=== PATIENT | male | born 1980 | race African-American/Black ===

== ENCOUNTER 2016-03-18 15:19 | Emergency (ER) | payer SELFPAY ==
[~2016-03-18] VITALS: Ht 182.9 cm; Wt 104.3 kg
[2016-03-18 18:04] VITALS: BP 155/96
[2016-03-18] MEDS ORDERED: CEPH-264 PO (18:28)
[2016-03-18] MEDS ORDERED: TRIA15OI9 TP (18:28)
--- NOTE | 2016-03-18 18:28 | PHYS DOC ---
Past Medical History Past Medical History: No Pertinent History Past Surgical History: No Surgical History Additional Information: Occasional smoker Alcohol Use: Occasionally Drug Use: None Adult General Chief Complaint Chief Complaint: INSECT BITE HPI HPI Patient is a 36 year old male who presents with redness and swelling to the right forearm starting yesterday when he awoke. There are 3 areas of redness and swelling. Patient denies any pain but states that the spots are itchy. He also has 1 spot on the left side of the low back. He denies any fever or difficulty breathing. He denies any change in household products or new medications. He lives alone. He does not have a PCP. Review of Systems Review of Systems Constitutional: Denies fever or chills. [] Respiratory: Denies cough or shortness of breath. [] Musculoskeletal: Denies back pain or joint pain. [] Integument: Reports redness, swelling, and itching to the right forearm. Neurologic: Denies headache, focal weakness or sensory changes. [] Allergies Allergies Allergies Coded Allergies Type Severity Reaction Last Updated Verified No Known Drug Allergies 04/16/15 No Physical Exam Physical Exam Constitutional: Well developed, well nourished, no acute distress, non-toxic appearance. [] HENT: Normocephalic, atraumatic, oropharynx moist. [] Eyes: PERRLA, EOMI, conjunctiva normal, no discharge. [] Skin: Warm, dry. There are 3 areas of erythema with mild edema of the right forearm on the dorsal and ventral sides. There is central punctate lesion within each. There is no induration or drainage. There is another smaller, approximately 1 cm, lesion in the left lumbar region of the back. Back: No midline tenderness, no CVA tenderness. [] Extremities: No tenderness, ROM intact, no edema. Distal pulses equal bilaterally. [] Neurologic: Alert and oriented X 3, normal motor function, normal sensory function, no focal deficits noted. [] Psychologic: Affect normal, judgement normal, mood normal. [] Current Patient Data Vital Signs Vital Signs Date Time Temp Pulse Resp B/P Pulse Ox O2 Delivery O2 Flow Rate FiO2 03/18/16 18:04 98.2 87 16 98 Room Air 98.2 EKG EKG [] Radiology/Procedures Radiology/Procedures [] Course & Med Decision Making Course & Med Decision Making Pertinent Labs and Imaging studies reviewed. (See chart for details) [] Dragon Disclaimer Dragon Disclaimer This electronic medical record was generated, in whole or in part, using a voice recognition dictation system. Departure Departure Impression: Primary Impression: Insect bite Disposition: 01 HOME, SELF-CARE Condition: STABLE Referrals: NO PCP (PCP) Patient Instructions: Insect Bite, [id number] Additional Instructions: You appear to have insect bites that may be infected. Please apply the prescribed ointment to help with itching. Please complete all the prescribed antibiotics, even if you are improving. Please follow-up with a primary care provider in the next 2-3 days for reassessment of your bites, sooner if worsening. Return to emergency department with any new or concerning symptoms. Scripts Triamcinolone Acetonide (Triamcinolone Acetonide 0.5% Oint)15 Gm Oint...g.1 Howie TP BID #60 GM Prov:AUDREY BEAL 03/18/16 Cephalexin (Keflex)500 Mg Capsule1 Cap PO BID #14 CAP Prov:AUDREY BEAL 03/18/16 Problem Qualifiers Primary Impression: Insect bite Encounter type: initial encounter Qualified Code: W57.XXXA - Bitten or stung by nonvenomous insect and other nonvenomous arthropods, initial encounter AUDREY BEAL Mar 18, 2016 18:28
== END 2016-03-18 18:35 | disposition home or self-care (01) ==
LOC: ER 15:19
DX: S50.861A Insect bite (nonvenomous) of right forearm, initial encounter (principal); F17.200 Nicotine dependence, unspecified, uncomplicated; W57.XXXA Bitten or stung by nonvenomous insect and other nonvenomous arthropods, initial encounter; Y93.89 Activity, other specified; Y92.89 Other specified places as the place of occurrence of the external cause; Y99.8 Other external cause status
CPT/HCPCS: 99283

== ENCOUNTER 2016-08-08 10:37 | Emergency (ER) | payer SELFPAY ==
[~2016-08-08] VITALS: Ht 182.9 cm; Wt 108.9 kg
[~2016-08-08 10:37] MED LIST: CEPH-264 PO; TRIA15OI9 TP
--- NOTE | 2016-08-08 10:58 | PHYS DOC ---
Past Medical History Past Medical History: No Pertinent History Past Surgical History: No Surgical History Alcohol Use: Occasionally Drug Use: None Adult General Chief Complaint Chief Complaint: ABDOMINAL PAIN HPI HPI Patient is a 36 year old male with no significant medical history who presents today complaining of mild left mid and lower abdominal pain that has been going on for 1 month and only occurs when he lifts weights. Patient denies any nausea vomiting diarrhea urgency frequency or dysuria. Denies any hematuria. Denies any fever. He states he smokes occasionally and does use marijuana occasionally. Denies any chance he is constipated. Review of Systems Review of Systems Constitutional: Denies fever or chills [] Eyes: Denies change in visual acuity, redness, or eye pain [] HENT: Denies nasal congestion or sore throat [] Respiratory: Denies cough or shortness of breath [] Cardiovascular: No additional information not addressed in HPI [] GI: Left mid and lower abdominal pain : Denies dysuria or hematuria [] Musculoskeletal: Denies back pain or joint pain [] Integument: Denies rash or skin lesions [] Neurologic: Denies headache, focal weakness or sensory changes [] Endocrine: Denies polyuria or polydipsia [] Allergies Allergies Allergies Coded Allergies Type Severity Reaction Last Updated Verified No Known Drug Allergies 04/16/15 No Physical Exam Physical Exam Constitutional: Well developed, well nourished, no acute distress, non-toxic appearance. [] HENT: Normocephalic, atraumatic, bilateral external ears normal, oropharynx moist, no oral exudates, nose normal. [] Eyes: PERRLA, EOMI, conjunctiva normal, no discharge. [] Neck: Normal range of motion, no tenderness, supple, no stridor. [] Cardiovascular:Heart rate regular rhythm, no murmur [] Lungs & Thorax: Bilateral breath sounds clear to auscultation [] Abdomen: Bowel sounds normal, soft, no tenderness, no masses, no pulsatile masses. [] Skin: Warm, dry, no erythema, no rash. [] Back: No tenderness, no CVA tenderness. [] Extremities: No tenderness, no cyanosis, no clubbing, ROM intact, no edema. [] Neurologic: Alert and oriented X 3, normal motor function, normal sensory function, no focal deficits noted. [] Psychologic: Affect normal, judgement normal, mood normal. [] Current Patient Data Vital Signs Vital Signs Date Time Temp Pulse Resp B/P (MAP) Pulse Ox O2 Delivery O2 Flow Rate FiO2 08/08/16 11:18 69 18 135/85 (102) 97 Room Air 08/08/16 10:44 98.1 98.1 Lab Values Laboratory Tests Test 08/08/16 10:50 08/08/16 11:00 Urine Collection Type Unknown Urine Color Yellow Urine Clarity Clear Urine pH 5.5 Urine Specific [place] 1.010 Urine Protein Negative mg/dL (NEG-TRACE) Urine Glucose (UA) Negative mg/dL (NEG) Urine Ketones (Stick) Negative mg/dL (NEG) Urine Blood Negative (NEG) Urine Nitrite Negative (NEG) Urine Bilirubin Negative (NEG) Urine Urobilinogen Dipstick 0.2 mg/dL (0.2 mg/dL) Urine Leukocyte Esterase Trace (NEG) Urine RBC 0 /HPF (0-2) Urine WBC Occ /HPF (0-4) Urine Squamous Epithelial Cells Occ /LPF Urine Bacteria 0 /HPF (0-FEW) Urine Opiates Screen Neg (NEG) Urine Methadone Screen Neg (NEG) Urine Barbiturates Neg (NEG) Urine Phencyclidine Screen Neg (NEG) Urine Amphetamine/Methamphetamine Neg (NEG) Urine Benzodiazepines Screen Neg (NEG) Urine Cocaine Screen Neg (NEG) Urine Cannabinoids Screen Pos (NEG) Urine Ethyl Alcohol Neg (NEG) White Blood Count 9.0 x10^3/uL (4.0-11.0) Red Blood Count 4.83 x10^6/uL (4.30-5.70) Hemoglobin 15.1 g/dL (13.0-17.5) Hematocrit 43.5 % (39.0-53.0) Mean Corpuscular Volume 90 fL (79-100) Mean Corpuscular Hemoglobin 31 pg (25-35) Mean Corpuscular Hemoglobin Concent 35 g/dL (31-37) Red Cell Distribution Width 14.0 % (11.5-14.5) Platelet Count 272 x10^3/uL (140-400) Neutrophils (%) (Auto) 52 % (31-73) Lymphocytes (%) (Auto) 33 % (24-48) Monocytes (%) (Auto) 12 % (0-9) H Eosinophils (%) (Auto) 2 % (0-3) Basophils (%) (Auto) 1 % (0-3) Neutrophils # (Auto) 4.7 x10^3uL (1.8-7.7) Lymphocytes # (Auto) 3.0 x10^3/uL (1.0-4.8) Monocytes # (Auto) 1.1 x10^3/uL (0.0-1.1) Eosinophils # (Auto) 0.2 x10^3/uL (0.0-0.7) Basophils # (Auto) 0.1 x10^3/uL (0.0-0.2) Sodium Level 139 mmol/L (136-145) Potassium Level 4.3 mmol/L (3.5-5.1) Chloride Level 103 mmol/L (98-107) Carbon Dioxide Level 29 mmol/L (21-32) Anion Gap 7 (6-14) Blood Urea Nitrogen 11 mg/dL (8-26) Creatinine 1.2 mg/dL (0.7-1.3) Estimated GFR (Cockcroft-Gault) 83.4 BUN/Creatinine Ratio 9 (6-20) Glucose Level 100 mg/dL (70-99) H Calcium Level 9.7 mg/dL (8.5-10.1) Total Bilirubin 0.5 mg/dL (0.2-1.0) Aspartate Amino Transferase (AST) 22 U/L (15-37) Alanine Aminotransferase (ALT) 42 U/L (16-63) Alkaline Phosphatase 57 U/L (46-116) Total Protein 7.7 g/dL (6.4-8.2) Albumin 4.2 g/dL (3.4-5.0) Albumin/Globulin Ratio 1.2 (1.0-1.7) Ethyl Alcohol Level < 10 mg/dL (0-10) Laboratory Tests 08/08/16 11:00 Laboratory Tests 08/08/16 11:00 EKG EKG [] Radiology/Procedures Radiology/Procedures []PROCEDURE: CT ABDOMEN PELVIS WO CONTRAST Indication left-sided abdominal pain for several weeks. Axial images through the abdomen and pelvis were obtained. The study is limited. No IV or gastrointestinal contrast was administered. No prior imaging is available. The lung bases are clear. The liver and spleen appear unremarkable. The gallbladder appears grossly normal. No pancreatic adrenal or renal anomalies are seen. There are scattered diverticula seen associated with the large bowel. In the mid to distal descending colon, over approximately a 9 to 10 cm segment, there is stranding surrounding the colon. In the same area there are scattered diverticula. The findings are most compatible with a segment of diverticulitis. A discrete abscess is not seen. While an underlying mass is not apparent if colonoscopy has not been recently performed this should be considered. No additional finding in the pelvis is seen. IMPRESSION: Findings involving the descending colon compatible with a long segment of diverticulitis. If colonoscopy has not been recently performed this should be considered. PQRS Compliance Statement: One or more of the following individualized dose reduction techniques were utilized for this examination: 1. Automated exposure control 2. Adjustment of the mA and/or kV according to patient size 3. Use of iterative reconstruction technique DICTATED and SIGNED BY: HAWA EMANUEL MD DATE: 08/08/16 1132 CC: LIMA ANDREW APRN; NO PCP ~ Course & Med Decision Making Course & Med Decision Making Pertinent Labs and Imaging studies reviewed. (See chart for details) Evaluation shows a 36-year-old male patient complaining of left mid and lower abdominal pain that only occurs when he lifts weights. CBC CMP lipase with no acute findings. Urine analysis is negative for infection. CT of the abdomen and pelvic is noted for diverticulitis and recommends colonoscopy. Patient was provided a cloud physicist and instructed to follow-up for colonoscopy. He was discharged with Flagyl and Cipro. He was provided return precautions and discharged in stable condition. Dragon Disclaimer Dragon Disclaimer This electronic medical record was generated, in whole or in part, using a voice recognition dictation system. Departure Departure Impression: Primary Impression: Diverticulitis Disposition: 01 HOME, SELF-CARE Condition: STABLE Referrals: NO PCP (PCP) SAVANA BELTRÁN MD Follow-up in the next 1-7 days Patient Instructions: Diverticulitis Additional Instructions: You were seen for left lower quadrant abdominal pain. Your CT of the abdomen and pelvic was noted for diverticulitis. This is inflammation of the colon. We recommended following up with the provided cloud physicist for colonoscopy. We put you on antibiotics to help reduce some of the inflammation. Scripts Tramadol Hcl (ULTRAM) 50 Mg Tablet 1 TAB PO Q6HRS, #30 TAB Prov: LIMA ANDREW APRN 08/08/16 Metronidazole (FLAGYL) 500 Mg Tablet 500 MG PO TID, #30 TAB Prov: LIMA ANDREW APRN 08/08/16 Ciprofloxacin Hcl (CIPRO) 500 Mg Tablet 1 TAB PO BID, #20 TAB Prov: LIMA ANDREW APRN 08/08/16 Problem Qualifiers Primary Impression: Diverticulitis Diverticulitis site: large intestine Diverticulitis bleeding: without bleeding Diverticulitis complication: without perforation or abscess Qualified Codes: K57.32 - Diverticulitis of large intestine without perforation or abscess without bleeding LIMA ANDREW APRN Aug 08, 2016 10:58
[2016-08-08 11:18] VITALS: BP 135/85
[2016-08-08 11:20] LABS: BASO # 0.1 x10^3/uL (0.0-0.2); BASO % 1 % (0-3); EOS % 2 % (0-3); HEMATOCRIT 43.5 % (39.0-53.0); HEMOGLOBIN 15.1 g/dL (13.0-17.5); LYMPH % 33 % (24-48); MEAN CORPUSCULAR HEMOGLOBIN 31 pg (25-35); MEAN CORPUSCULAR HGB CONC 35 g/dL (31-37); MEAN CORPUSCULAR VOLUME 90 fL (79-100); MONO % 12 % (0-9); NEUT % 52 % (31-73); PLATELET COUNT 272 x10^3/uL (140-400); RED BLOOD COUNT 4.83 x10^6/uL (4.30-5.70)
[2016-08-08 11:25] LABS: BILIRUBIN,URINE NEGATIVE (NEG); GLUCOSE,URINE NEGATIVE (NEG); NITRITE,URINE NEGATIVE (NEG); PH,URINE 5.5; PROTEIN,URINE NEGATIVE (NEG-TRACE); UROBILINOGEN,URINE 0.2 mg/dL (0.2 mg/dL)
[2016-08-08 11:30] LABS: BARBITURATES NEG (NEG); BENZODIAZEPINES NEG (NEG); CANNABINOIDS POS (NEG); COCAINE NEG (NEG); METHADONE NEG (NEG); OPIATES NEG (NEG); PHENCYCLIDINE NEG (NEG)
[2016-08-08 11:32] LABS: CALCIUM 9.7 mg/dL (8.5-10.1); CREATININE 1.2 mg/dL (0.7-1.3); GFR 83.4; POTASSIUM 4.3 mmol/L (3.5-5.1)
[2016-08-08 11:38] LABS: ALBUMIN 4.2 g/dL (3.4-5.0); ALBUMIN/GLOBULIN RATIO 1.2 (1.0-1.7); TOTAL BILIRUBIN 0.5 mg/dL (0.2-1.0); TOTAL PROTEIN 7.7 g/dL (6.4-8.2)
--- NOTE | 2016-08-08 11:41 | RAD ---
Indication left-sided abdominal pain for several weeks. Axial images through the abdomen and pelvis were obtained. The study is limited. No IV or gastrointestinal contrast was administered. No prior imaging is available. The lung bases are clear. The liver and spleen appear unremarkable. The gallbladder appears grossly normal. No pancreatic adrenal or renal anomalies are seen. There are scattered diverticula seen associated with the large bowel. In the mid to distal descending colon, over approximately a 9 to 10 cm segment, there is stranding surrounding the colon. In the same area there are scattered diverticula. The findings are most compatible with a segment of diverticulitis. A discrete abscess is not seen. While an underlying mass is not apparent if colonoscopy has not been recently performed this should be considered. No additional finding in the pelvis is seen. IMPRESSION: Findings involving the descending colon compatible with a long segment of diverticulitis. If colonoscopy has not been recently performed this should be considered. PQRS Compliance Statement: One or more of the following individualized dose reduction techniques were utilized for this examination: 1. Automated exposure control 2. Adjustment of the mA and/or kV according to patient size 3. Use of iterative reconstruction technique
[2016-08-08 11:53] LABS: BACTERIA,URINE 0 /HPF (0-FEW); RBC,URINE 0 /HPF (0-2); SQUAMOUS EPITHELIAL CELL,UR OCC /LPF; WBC,URINE OCC /HPF (0-4)
[2016-08-08] MEDS ORDERED: METR500T PO (12:35)
[2016-08-08] MEDS ORDERED: TRAM-48 PO (12:35)
[2016-08-08] MEDS ORDERED: CIPR500T94 PO (12:35)
== END 2016-08-08 12:47 | disposition home or self-care (01) ==
LOC: ER 10:37
DX: K57.92 Diverticulitis of intestine, part unspecified, without perforation or abscess without bleeding (principal); F17.200 Nicotine dependence, unspecified, uncomplicated; F12.10 Cannabis abuse, uncomplicated
CPT/HCPCS: 36415; 74176; 80053; 80305; 80320; 81001; 85027; G0480; G0481; 99285-25

== ENCOUNTER 2016-11-21 15:09 | Emergency (ER) | payer SELFPAY ==
[~2016-11-21] VITALS: Ht 182.9 cm; Wt 130.3 kg
[~2016-11-21 15:09] MED LIST changes: +CIPR500T94 PO; +METR500T PO; +TRAM-48 PO
--- NOTE | 2016-11-21 15:53 | PHYS DOC ---
Past Medical History Past Medical History: Diverticulosis Past Surgical History: No Surgical History Alcohol Use: Occasionally Drug Use: Marijuana Adult General Chief Complaint Chief Complaint: ABDOMINAL PAIN HPI HPI Patient is a 36 year old male with a history of diverticulitis presents the ED complaining of left lower quadrant abdominal pain 3 days. Patient states he had one episode of diverticulitis 3 months ago. States he had improvement with antibiotics and had no problem since. Associated symptoms include nausea. Denies vomiting, diarrhea, blood in stool, chest pain, shortness of breath, weakness, fever or dizziness. Review of Systems Review of Systems Constitutional: Denies fever or chills [] Eyes: Denies change in visual acuity, redness, or eye pain [] HENT: Denies nasal congestion or sore throat [] Respiratory: Denies cough or shortness of breath [] Cardiovascular: No additional information not addressed in HPI [] GI: Complains of abdominal pain and nausea. Denies vomiting, bloody stools or diarrhea [] : Denies dysuria or hematuria [] Musculoskeletal: Denies back pain or joint pain [] Integument: Denies rash or skin lesions [] Neurologic: Denies headache, focal weakness or sensory changes [] Endocrine: Denies polyuria or polydipsia [] Current Medications Current Medications Current Medications Medications (Trade) Dose Ordered Sig/Nancy Start Time Stop Time Status Last Admin Dose Admin Iohexol (Omnipaque 300 Mg/ml) 75 ml 1X ONCE 11/21/16 16:30 11/21/16 16:31 DC 11/21/16 16:54 75 ML Morphine Sulfate 2 mg 1X ONCE 11/21/16 16:45 11/21/16 16:46 DC 11/21/16 16:47 2 MG Ondansetron HCl (Zofran) 4 mg 1X ONCE 11/21/16 16:45 11/21/16 16:46 DC 11/21/16 16:46 4 MG Allergies Allergies Allergies Coded Allergies Type Severity Reaction Last Updated Verified No Known Drug Allergies 04/16/15 No Physical Exam Physical Exam Constitutional: Well developed, well nourished, no acute distress, non-toxic appearance. [] HENT: Normocephalic, atraumatic, bilateral external ears normal, oropharynx moist, no oral exudates, nose normal. [] Eyes: PERRLA, EOMI, conjunctiva normal, no discharge. [] Neck: Normal range of motion, no tenderness, supple, no stridor. [] Cardiovascular:Heart rate regular rhythm, no murmur [] Lungs & Thorax: Bilateral breath sounds clear to auscultation [] Abdomen: Bowel sounds normal, soft, MILD LEFT LOWER QUADRANT TENDERNESS. no masses, no pulsatile masses. [] Skin: Warm, dry, no erythema, no rash. [] Back: No tenderness, no CVA tenderness. [] Extremities: No tenderness, no cyanosis, no clubbing, ROM intact, no edema. [] Neurologic: Alert and oriented X 3, normal motor function, normal sensory function, no focal deficits noted. [] Psychologic: Affect normal, judgement normal, mood normal. [] Current Patient Data Vital Signs Vital Signs Date Time Temp Pulse Resp B/P (MAP) Pulse Ox O2 Delivery O2 Flow Rate FiO2 11/21/16 17:13 62 18 152/100 (117) 98 Room Air 11/21/16 15:10 98.6 98.6 Lab Values Laboratory Tests Test 11/21/16 15:50 White Blood Count 6.1 x10^3/uL (4.0-11.0) Red Blood Count 4.76 x10^6/uL (4.30-5.70) Hemoglobin 14.8 g/dL (13.0-17.5) Hematocrit 43.5 % (39.0-53.0) Mean Corpuscular Volume 91 fL (79-100) Mean Corpuscular Hemoglobin 31 pg (25-35) Mean Corpuscular Hemoglobin Concent 34 g/dL (31-37) Red Cell Distribution Width 13.8 % (11.5-14.5) Platelet Count 285 x10^3/uL (140-400) Urine Collection Type Unknown Urine Color Yellow Urine Clarity Clear Urine pH 7.0 Urine Specific [place] 1.015 Urine Protein Negative mg/dL (NEG-TRACE) Urine Glucose (UA) Negative mg/dL (NEG) Urine Ketones (Stick) Negative mg/dL (NEG) Urine Blood Negative (NEG) Urine Nitrite Negative (NEG) Urine Bilirubin Negative (NEG) Urine Urobilinogen Dipstick 0.2 mg/dL (0.2 mg/dL) Urine Leukocyte Esterase Negative (NEG) Urine RBC 1-2 /HPF (0-2) Urine WBC 0 /HPF (0-4) Urine Bacteria 0 /HPF (0-FEW) Sodium Level 139 mmol/L (136-145) Potassium Level 4.2 mmol/L (3.5-5.1) Chloride Level 103 mmol/L (98-107) Carbon Dioxide Level 30 mmol/L (21-32) Anion Gap 6 (6-14) Blood Urea Nitrogen 14 mg/dL (8-26) Creatinine 1.1 mg/dL (0.7-1.3) Estimated GFR (Cockcroft-Gault) 92.2 BUN/Creatinine Ratio 13 (6-20) Glucose Level 85 mg/dL (70-99) Calcium Level 9.4 mg/dL (8.5-10.1) Total Bilirubin 0.4 mg/dL (0.2-1.0) Aspartate Amino Transferase (AST) 28 U/L (15-37) Alanine Aminotransferase (ALT) 48 U/L (16-63) Alkaline Phosphatase 48 U/L (46-116) Total Protein 7.3 g/dL (6.4-8.2) Albumin 3.9 g/dL (3.4-5.0) Albumin/Globulin Ratio 1.1 (1.0-1.7) Lipase 159 U/L (73-393) Laboratory Tests 11/21/16 15:50 Laboratory Tests 11/21/16 15:50 EKG EKG [] Radiology/Procedures Radiology/Procedures PROCEDURE: CT ABD PELV W/ IV CONTRST ONLY CT Abdomen and Pelvis With Intravenous Contrast: History: Left lower quadrant pain, diverticulitis. Comparison: CT abdomen pelvis August 08, 2016. Technique: After administration of intravenous contrast administration, 75 mL Omnipaque-300, CT of the abdomen and pelvis was performed. Exposure: One or more of the following individualized dose reduction techniques were utilized for this examination: 1. Automated exposure control 2. Adjustment of the mA and/or kV according to patient size 3. Use of iterative reconstruction technique Findings: Evaluation of enteric structures may be limited by lack of oral contrast. The liver, spleen, pancreas, gallbladder, and bilateral adrenal glands are unremarkable. Bilateral kidneys enhance symmetrically. No bowel obstruction or inflammation is identified. Appendix is without evidence of inflammation. Colonic diverticulosis is noted, but no diverticulitis is appreciated. Urinary bladder is unremarkable. No free air or free fluid is seen in the abdomen or pelvis. Impression: 1. No acute abnormality identified in the abdomen or pelvis. Electronically signed by: Neri Pérez MD (11/21/2016 5:13 PM) [facility][] Course & Med Decision Making Course & Med Decision Making Pertinent Labs and Imaging studies reviewed. (See chart for details) []Discussed labs and imaging with patient. Patient's pain improved. Vital stable , no acute distress. On reexamination, Abdomen is soft nontender nondistended. No peritoneal signs. Discussed follow-up with GI in 1-2 days. Provided contact information/education. Discussed reasons to return to the ED. Patient understands and agrees with plan. Dragon Disclaimer Dragon Disclaimer This electronic medical record was generated, in whole or in part, using a voice recognition dictation system. Departure Departure Impression: Primary Impression: Abdominal pain Disposition: HOME, SELF-CARE Condition: IMPROVED Referrals: NO PCP (PCP) SAVANA BELTRÁN MD Patient Instructions: Abdominal Pain JONATHAN MANCINI Nov 21, 2016 15:53
[2016-11-21 15:57] LABS: HEMATOCRIT 43.5 % (39.0-53.0); HEMOGLOBIN 14.8 g/dL (13.0-17.5); RED BLOOD COUNT 4.76 x10^6/uL (4.30-5.70); RED CELL DISTRIBUTION WIDTH 13.8 % (11.5-14.5); WHITE BLOOD COUNT 6.1 x10^3/uL (4.0-11.0)
[2016-11-21 16:09] LABS: CALCIUM 9.4 mg/dL (8.5-10.1); CREATININE 1.1 mg/dL (0.7-1.3); GFR 92.2; POTASSIUM 4.2 mmol/L (3.5-5.1)
[2016-11-21 16:14] LABS: ALBUMIN 3.9 g/dL (3.4-5.0); ALBUMIN/GLOBULIN RATIO 1.1 (1.0-1.7); TOTAL BILIRUBIN 0.4 mg/dL (0.2-1.0); TOTAL PROTEIN 7.3 g/dL (6.4-8.2)
[2016-11-21 16:15] LABS: BILIRUBIN,URINE NEGATIVE (NEG); GLUCOSE,URINE NEGATIVE (NEG); NITRITE,URINE NEGATIVE (NEG); PROTEIN,URINE NEGATIVE (NEG-TRACE); UROBILINOGEN,URINE 0.2 mg/dL (0.2 mg/dL)
[2016-11-21 16:30] LABS: BACTERIA,URINE 0 /HPF (0-FEW); WBC,URINE 0 /HPF (0-4)
[2016-11-21] MEDS ORDERED: IOHEXOL 300 MG/ML 75 ML VIAL IV ONE (16:30)
[2016-11-21] MEDS ORDERED: ONDANSETRON PF 4 MG/2 ML VIAL. IV ONE (16:45)
[2016-11-21] MEDS ORDERED: MORPHINE SULFATE 2 MG/ML DISP.SYRIN. IV ONE (16:45)
[2016-11-21 17:13] VITALS: BP 152/100
--- NOTE | 2016-11-21 17:16 | RAD ---
CT Abdomen and Pelvis With Intravenous Contrast: History: Left lower quadrant pain, diverticulitis. Comparison: CT abdomen pelvis August 08, 2016. Technique: After administration of intravenous contrast administration, 75 mL Omnipaque-300, CT of the abdomen and pelvis was performed. Exposure: One or more of the following individualized dose reduction techniques were utilized for this examination: 1. Automated exposure control 2. Adjustment of the mA and/or kV according to patient size 3. Use of iterative reconstruction technique Findings: Evaluation of enteric structures may be limited by lack of oral contrast. The liver, spleen, pancreas, gallbladder, and bilateral adrenal glands are unremarkable. Bilateral kidneys enhance symmetrically. No bowel obstruction or inflammation is identified. Appendix is without evidence of inflammation. Colonic diverticulosis is noted, but no diverticulitis is appreciated. Urinary bladder is unremarkable. No free air or free fluid is seen in the abdomen or pelvis. Impression: 1. No acute abnormality identified in the abdomen or pelvis. Electronically signed by: Neri Pérez MD (11/21/2016 5:13 PM) [facility]
== END 2016-11-21 17:43 | disposition home or self-care (01) ==
LOC: ER 15:09
DX: R10.32 Left lower quadrant pain (principal); R11.0 Nausea
CPT/HCPCS: 36415; 74177; 80053; 81001; 83690; 85027; 96374; 96375; 99285; J2270; J2405; Q9967

== ENCOUNTER 2017-09-27 12:08 | Emergency (ER) | payer SELFPAY ==
[~2017-09-27] VITALS: Ht 182.9 cm; Wt 113.4 kg
[2017-09-27 12:55] LABS: BASO # 0.1 x10^3/uL (0.0-0.2); BASO % 1 % (0-3); EOS # 0.2 x10^3/uL (0.0-0.7); EOS % 3 % (0-3); HEMATOCRIT 43.5 % (39.0-53.0); HEMOGLOBIN 15.3 g/dL (13.0-17.5); LYMPH # 3.1 x10^3/uL (1.0-4.8); LYMPH % 55 % (24-48); MEAN CORPUSCULAR HEMOGLOBIN 32 pg (25-35); MEAN CORPUSCULAR HGB CONC 35 g/dL (31-37); MEAN CORPUSCULAR VOLUME 91 fL (79-100); MONO # 0.6 x10^3/uL (0.0-1.1); MONO % 11 % (0-9); NEUT # 1.7 x10^3uL (1.8-7.7); NEUT % 30 % (31-73); PLATELET COUNT 371 x10^3/uL (140-400); RED BLOOD COUNT 4.78 x10^6/uL (4.30-5.70); RED CELL DISTRIBUTION WIDTH 13.8 % (11.5-14.5); WHITE BLOOD COUNT 5.7 x10^3/uL (4.0-11.0)
[2017-09-27 12:59] LABS: CREATININE 1.2 mg/dL (0.7-1.3); GFR 82.9; POTASSIUM 4.4 mmol/L (3.5-5.1)
[2017-09-27] MEDS ORDERED: ASPIRIN 325 MG TABLET PO ONE (13:00)
[2017-09-27 13:06] LABS: ALBUMIN 4.2 g/dL (3.4-5.0); ALBUMIN/GLOBULIN RATIO 1.2 (1.0-1.7); TOTAL BILIRUBIN 0.5 mg/dL (0.2-1.0); TOTAL PROTEIN 7.8 g/dL (6.4-8.2)
[2017-09-27] MEDS: NITROGLYCERIN SUBLINGUAL 0.4 MG BOTTLE OF 25. SL PRN ×2 (13:07→13:13)
--- NOTE | 2017-09-27 13:11 | RAD ---
EXAM: Chest, 2 views. HISTORY: Chest pain. COMPARISON: None. FINDINGS: Frontal and lateral views of the chest are obtained. There is no infiltrate, pleural effusion or pneumothorax. The heart is normal in size. IMPRESSION: No acute pulmonary finding. Electronically signed by: Robyn Chapman MD (09/27/2017 1:08 PM) [place] [id number]
--- NOTE | 2017-09-27 13:30 | EKG ---
[facility] [address] [place] [address] Test Date: 2017-09-27 Test Time: 12:13:10 Pat Name: RACHEL GARCIA Department: Room: Gender: M Transport Analyst: : 1980 Requested By: TOBY LO Order Number: [id number] Reading MD: Eduardo Zamora MD Measurements Intervals [place] Rate: 87 P: 48 VT: 150 QRS: -43 QRSD: 100 T: 26 QT: 336 QTc: 409 Interpretive Statements SINUS RHYTHM ABNORMAL LEFT AXIS DEVIATION LEFT ANTERIOR FASCICULAR BLOCK INCOMPLETE RIGHT BUNDLE BRANCH BLOCK Electronically Signed On 09-28-2017 7:38:36 CDT by Eduardo Zamora MD
--- NOTE | 2017-09-27 14:32 | PHYS DOC ---
Past Medical History Past Medical History: Diverticulosis, Hypertension Past Surgical History: No Surgical History Alcohol Use: Occasionally Drug Use: Marijuana Adult General Chief Complaint Chief Complaint: CHEST PAIN HPI HPI Patient is a 37 year old -[place] male who presents to the emergency Department today with complaints of pain in the left side of his chest for the last 5 days. Patient states that the pain has, and gone. He awoke this morning with pressure in his left chest. He denies any shortness of breath, nausea, vomiting, diaphoresis, back pain, abdominal pain, wheezing, fever, or dizziness. She currently rates his pain as 3 out of 10 on the pain scale. He states that the onset of this pain upon awakening this morning the pain was a 5 or 6 out of 10. He took some Adderall prior to arrival. Patient states that he thought the pain was related to a recent increase in working out. States the pain is not reproducible in that nothing seems to provoke his pain. Patient is noted to be hypertensive with a blood pressure 187/119, he states that previously when he has tried to donate blood he has been told that his blood pressure was too high and that he needed to follow up. Patient states that he has never formally been diagnosed with hypertension and has never been prescribed education for this condition. He does smoke marijuana occasionally and sometimes smokes cigar. He denies any drug allergies or any medications. He reports no surgical or medical history. Review of Systems Review of Systems Constitutional: Denies fever or chills [] Eyes: Denies change in visual acuity, redness, or eye pain [] HENT: Denies nasal congestion or sore throat [] Respiratory: Denies cough or shortness of breath [] Cardiovascular: No additional information not addressed in HPI [] GI: Denies abdominal pain, nausea, vomiting, bloody stools or diarrhea [] : Denies dysuria or hematuria [] Musculoskeletal: Denies back pain or joint pain [] Integument: Denies rash or skin lesions [] Neurologic: Denies headache, focal weakness or sensory changes [] Endocrine: Denies polyuria or polydipsia [] All other systems were reviewed and found to be within normal limits, except as documented in this note. Current Medications Current Medications Current Medications Medications (Trade) Dose Ordered Sig/Nancy Start Time Stop Time Status Last Admin Dose Admin Aspirin (Tod Aspirin) 325 mg 1X ONCE 09/27/17 13:00 09/27/17 13:01 DC 09/27/17 13:02 325 MG Nitroglycerin (Nitrostat) 0.4 mg PRN Q5MIN PRN 09/27/17 13:00 09/27/17 13:13 0.4 MG Allergies Allergies Allergies Coded Allergies Type Severity Reaction Last Updated Verified No Known Drug Allergies 04/16/15 No Physical Exam Physical Exam Constitutional: Well developed, well nourished, no acute distress, non-toxic appearance, anxious, obese. [] HENT: Normocephalic, atraumatic, bilateral external ears normal, oropharynx moist, no oral exudates, nose normal. [] Eyes: PERRLA, conjunctiva normal, no discharge. [] Cardiovascular: Heart rate regular rhythm, no murmur, chest wall is nontender to palpation [] Lungs & Thorax: Bilateral breath sounds clear to auscultation [] Abdomen: Bowel sounds normal, soft, no tenderness, no masses, no pulsatile masses. [] Skin: Warm, dry, no erythema, no rash. [] Back: No tenderness, no CVA tenderness. [] Extremities: No tenderness, no cyanosis, no clubbing, ROM intact, no edema. [] Neurologic: Alert and oriented X 3, normal motor function, normal sensory function, no focal deficits noted. [] Psychologic: Affect normal, judgement normal, mood normal. [] Current Patient Data Vital Signs Vital Signs Date Time Temp Pulse Resp B/P (MAP) Pulse Ox O2 Delivery O2 Flow Rate FiO2 09/27/17 13:40 68 17 178/79 (112) 99 Room Air 09/27/17 12:09 98.1 98.1 Lab Values Laboratory Tests Test 09/27/17 12:22 09/27/17 14:31 White Blood Count 5.7 x10^3/uL (4.0-11.0) Red Blood Count 4.78 x10^6/uL (4.30-5.70) Hemoglobin 15.3 g/dL (13.0-17.5) Hematocrit 43.5 % (39.0-53.0) Mean Corpuscular Volume 91 fL (79-100) Mean Corpuscular Hemoglobin 32 pg (25-35) Mean Corpuscular Hemoglobin Concent 35 g/dL (31-37) Red Cell Distribution Width 13.8 % (11.5-14.5) Platelet Count 371 x10^3/uL (140-400) Neutrophils (%) (Auto) 30 % (31-73) L Lymphocytes (%) (Auto) 55 % (24-48) H Monocytes (%) (Auto) 11 % (0-9) H Eosinophils (%) (Auto) 3 % (0-3) Basophils (%) (Auto) 1 % (0-3) Neutrophils # (Auto) 1.7 x10^3uL (1.8-7.7) L Lymphocytes # (Auto) 3.1 x10^3/uL (1.0-4.8) Monocytes # (Auto) 0.6 x10^3/uL (0.0-1.1) Eosinophils # (Auto) 0.2 x10^3/uL (0.0-0.7) Basophils # (Auto) 0.1 x10^3/uL (0.0-0.2) D-Dimer (Vandana) < 0.27 ug/mlFEU Sodium Level 139 mmol/L (136-145) Potassium Level 4.4 mmol/L (3.5-5.1) Chloride Level 103 mmol/L (98-107) Carbon Dioxide Level 27 mmol/L (21-32) Anion Gap 9 (6-14) Blood Urea Nitrogen 11 mg/dL (8-26) Creatinine 1.2 mg/dL (0.7-1.3) Estimated GFR (Cockcroft-Gault) 82.9 BUN/Creatinine Ratio 9 (6-20) Glucose Level 117 mg/dL (70-99) H Calcium Level 10.0 mg/dL (8.5-10.1) Total Bilirubin 0.5 mg/dL (0.2-1.0) Aspartate Amino Transferase (AST) 23 U/L (15-37) Alanine Aminotransferase (ALT) 47 U/L (16-63) Alkaline Phosphatase 59 U/L (46-116) Troponin I Quantitative < 0.017 ng/mL (0.000-0.055) < 0.017 ng/mL (0.000-0.055) Total Protein 7.8 g/dL (6.4-8.2) Albumin 4.2 g/dL (3.4-5.0) Albumin/Globulin Ratio 1.2 (1.0-1.7) Laboratory Tests 09/27/17 12:22 Laboratory Tests 09/27/17 12:22 EKG EKG First EKG normal sinus rhythm with out STEMI read by Dr. Toth at 1217[] Repeat EKG normal sinus rhythm with no STEMI read by Dr. Toth at 1458 Radiology/Procedures Radiology/Procedures IMAGING REPORT Signed PATIENT: JOYCE GARCIA ACCOUNT: [id number] : 1980 LOCATION: ER AGE: 37 SEX: M EXAM STATUS: REG ER ORD. PHYSICIAN: TOBY LO APRN REASON: chest pain PROCEDURE: CHEST PA & LATERAL EXAM: Chest, 2 views. HISTORY: Chest pain. COMPARISON: None. FINDINGS: Frontal and lateral views of the chest are obtained. There is no infiltrate, pleural effusion or pneumothorax. The heart is normal in size. IMPRESSION: No acute pulmonary finding. Electronically signed by: Robyn Morales MD (09/27/2017 1:08 PM) [place] [id number] DICTATED and SIGNED BY: ROBYN MORALES MD DATE: 09/27/17 1308 [] Course & Med Decision Making Course & Med Decision Making Pertinent Labs and Imaging studies reviewed. (See chart for details) Patient is a 37-year-old -[place] male who presented to the emergency department with complaints of intermittent chest pain for the last 5 days. He was hypertensive on arrival to the emergency department. His hypertension improved after 2 sublingual nitroglycerin. His blood pressure remained elevated at the end of his visit, patient reported a history of having high blood pressure. His cardiac enzymes were negative 2 in the department. Two EKGs were negative for any acute STEMI 2. CXR was negative for any acute findings. Patient reported no chest pain after he received 2 nitroglycerin and 325 mg of aspirin in the department. He continued to deny chest pain at approximately 1530. Discussed these findings with patient, advised patient that his symptoms do not appear to be cardiac related. Advised patient that he needs to follow up with a primary care doctor concerning his elevated blood pressure and to be placed on blood pressure medications, patient was in agreement with this plan of care. He verbalized understanding of home care, follow-up, and return to ED instructions without any further questions or concerns. [] Dragon Disclaimer Dragon Disclaimer This electronic medical record was generated, in whole or in part, using a voice recognition dictation system. Departure Departure Impression: Primary Impression: Chest pain, atypical Disposition: 01 HOME, SELF-CARE Condition: STABLE Referrals: NO PCP (PCP) Patient Instructions: Chest Pain (Nonspecific), [id number] Additional Instructions: Use the provided list of primary care providers to follow up with a primary care provider concerning your high blood pressure. Apply warm packs or ice to your chest for comfort, avoid exercises that involve the affected area of discomfort. Return to the emergency room if your chest pain increases, you become short of breath or symptoms worsen. TOBY LO CLINICAL DOCUMENTATION NURSE Sep 27, 2017 14:32
[2017-09-27 16:12] VITALS: BP 164/101
--- NOTE | 2017-09-28 07:09 | EKG ---
[facility] [address] [place] [address] Test Date: 2017-09-27 Test Time: 14:45:13 Pat Name: RACHEL GARCIA Department: Room: Gender: M Horn Player: : 1980 Requested By: TOBY LO Order Number: [id number] Reading MD: Eduardo Zamora MD Measurements Intervals [place] Rate: 62 P: 31 NV: 172 QRS: -27 QRSD: 98 T: 8 QT: 368 QTc: 375 Interpretive Statements SINUS RHYTHM NON-SPECIFIC ST/T CHANGES Electronically Signed On 09-28-2017 7:24:44 CDT by Eduardo Zamora MD
== END 2017-09-27 16:51 | disposition home or self-care (01) ==
LOC: ER 12:08
DX: R07.89 Other chest pain (principal); I10 Essential (primary) hypertension; F12.10 Cannabis abuse, uncomplicated; F17.210 Nicotine dependence, cigarettes, uncomplicated
CPT/HCPCS: 36415; 71046; 80053; 84484; 85025; 85379; 93005; 99285-25

== ENCOUNTER 2018-08-13 15:16 | Emergency (ER) | payer SELFPAY ==
[~2018-08-13] VITALS: Ht 182.9 cm; Wt 108.9 kg
[~2018-08-13 15:16] MED LIST changes: +HYDR-3164 PO
[2018-08-13 15:52] LABS: BILIRUBIN,URINE NEGATIVE (NEG); CLARITY,URINE CLEAR; COLOR,URINE YELLOW; NITRITE,URINE NEGATIVE (NEG); PH,URINE 5.5; PROTEIN,URINE NEGATIVE (NEG-TRACE); UROBILINOGEN,URINE 0.2 mg/dL (0.2 mg/dL)
[2018-08-13 16:03] LABS: BACTERIA,URINE 0 /HPF (0-FEW); RBC,URINE 0 /HPF (0-2)
[2018-08-13] MEDS ORDERED: MORPHINE SULFATE 4 MG/ML VIAL. IV ONE (16:15)
[2018-08-13] MEDS ORDERED: ONDANSETRON PF 4 MG/2 ML VIAL. IV ONE (16:15)
[2018-08-13] MEDS ORDERED: IV NORMAL SALINE 1000ML BAG 1,000 ML IV ONE (16:15)
[2018-08-13] MEDS ORDERED: IOHEXOL 300 MG/ML 100ML VIAL. IV ONE (16:30)
[2018-08-13] MEDS ORDERED: CONTRAST GIVEN. MC PRN (16:30)
--- NOTE | 2018-08-13 16:33 | PHYS DOC ---
Past Medical History Past Medical History: No Pertinent History, Diverticulosis, Hypertension Past Surgical History: No Surgical History Alcohol Use: Occasionally Drug Use: Marijuana Adult General Chief Complaint Chief Complaint: ABDOMINAL PAIN HPI HPI Patient is a 38 year old male who presents with right lower quadrant abdominal pain that has been ongoing for 1 week. The patient denies nausea vomiting or diarrhea. Has a history of diverticulitis. States it hurts to eat and the pain is worse after he eats. Rates his pain as 5 out of 10 and sharp. Has not tried any interventions prior to arrival although he is not been eating as normal at home. Did state he went to a [employer] for [place] and had corn on the cob. Review of Systems Review of Systems Constitutional: Denies fever or chills [] Eyes: Denies change in visual acuity, redness, or eye pain [] HENT: Denies nasal congestion or sore throat [] Respiratory: Denies cough or shortness of breath [] Cardiovascular: No additional information not addressed in HPI [] GI: Reports abdominal pain Denies nausea, vomiting, bloody stools or diarrhea [] : Denies dysuria or hematuria [] Musculoskeletal: Denies back pain or joint pain [] Integument: Denies rash or skin lesions [] Neurologic: Denies headache, focal weakness or sensory changes [] Endocrine: Denies polyuria or polydipsia [] Complete systems were reviewed and found to be within normal limits, except as documented in this note. Current Medications Current Medications Current Medications Medications (Trade) Dose Ordered Sig/Nancy Start Time Stop Time Status Last Admin Dose Admin Info (CONTRAST GIVEN -- Rx MONITORING) 1 each PRN DAILY PRN 08/13/18 16:30 08/15/18 16:29 Iohexol (Omnipaque 300 Mg/ml) 75 ml 1X ONCE 08/13/18 16:30 08/13/18 16:31 DC 08/13/18 16:30 75 ML Morphine Sulfate (Morphine Sulfate) 4 mg 1X ONCE 08/13/18 16:15 08/13/18 16:16 DC 08/13/18 17:47 4 MG Ondansetron HCl (Zofran) 4 mg 1X ONCE 08/13/18 16:15 08/13/18 16:16 DC 08/13/18 17:44 4 MG Sodium Chloride 1,000 ml @ 1,000 mls/hr 1X ONCE 08/13/18 16:15 08/13/18 17:14 DC 08/13/18 17:44 1,000 MLS/HR Allergies Allergies Allergies Coded Allergies Type Severity Reaction Last Updated Verified No Known Drug Allergies 04/16/15 No Physical Exam Physical Exam Constitutional: Well developed, well nourished, no acute distress, non-toxic a ppearance. [] HENT: Normocephalic, atraumatic, bilateral external ears normal, oropharynx moist, no oral exudates, nose normal. [] Eyes: PERRLA, EOMI, conjunctiva normal, no discharge. [] Neck: Normal range of motion, no tenderness, supple, no stridor. [] Cardiovascular:Heart rate regular rhythm, no murmur [] Lungs & Thorax: Bilateral breath sounds clear to auscultation [] Abdomen: Bowel sounds normal, soft, tenderness R side abdomen, no masses, no pulsatile masses. [] Skin: Warm, dry, no erythema, no rash. [] Back: No tenderness, no CVA tenderness. [] Extremities: No tenderness, no cyanosis, no clubbing, ROM intact, no edema. [] Neurologic: Alert and oriented X 3, normal motor function, normal sensory function, no focal deficits noted. [] Psychologic: Affect normal, judgement normal, mood normal. [] Current Patient Data Vital Signs Vital Signs Date Time Temp Pulse Resp B/P (MAP) Pulse Ox O2 Delivery O2 Flow Rate FiO2 08/13/18 17:47 18 98 Lab Values Laboratory Tests Test 08/13/18 15:30 08/13/18 16:45 Urine Collection Type Unknown Urine Color Yellow Urine Clarity Clear Urine pH 5.5 Urine Specific [place] 1.015 Urine Protein Negative mg/dL (NEG-TRACE) Urine Glucose (UA) Negative mg/dL (NEG) Urine Ketones (Stick) Negative mg/dL (NEG) Urine Blood Negative (NEG) Urine Nitrite Negative (NEG) Urine Bilirubin Negative (NEG) Urine Urobilinogen Dipstick 0.2 mg/dL (0.2 mg/dL) Urine Leukocyte Esterase Negative (NEG) Urine RBC 0 /HPF (0-2) Urine WBC 1-4 /HPF (0-4) Urine Bacteria 0 /HPF (0-FEW) Urine Mucus Marked /LPF White Blood Count 5.2 x10^3/uL (4.0-11.0) Red Blood Count 4.77 x10^6/uL (4.30-5.70) Hemoglobin 14.9 g/dL (13.0-17.5) Hematocrit 43.4 % (39.0-53.0) Mean Corpuscular Volume 91 fL (79-100) Mean Corpuscular Hemoglobin 31 pg (25-35) Mean Corpuscular Hemoglobin Concent 34 g/dL (31-37) Red Cell Distribution Width 13.8 % (11.5-14.5) Platelet Count 278 x10^3/uL (140-400) Neutrophils (%) (Auto) 30 % (31-73) L Lymphocytes (%) (Auto) 56 % (24-48) H Monocytes (%) (Auto) 11 % (0-9) H Eosinophils (%) (Auto) 2 % (0-3) Basophils (%) (Auto) 1 % (0-3) Neutrophils # (Auto) 1.6 x10^3uL (1.8-7.7) L Lymphocytes # (Auto) 3.0 x10^3/uL (1.0-4.8) Monocytes # (Auto) 0.6 x10^3/uL (0.0-1.1) Eosinophils # (Auto) 0.1 x10^3/uL (0.0-0.7) Basophils # (Auto) 0.0 x10^3/uL (0.0-0.2) Sodium Level 138 mmol/L (136-145) Potassium Level 3.9 mmol/L (3.5-5.1) Chloride Level 102 mmol/L (98-107) Carbon Dioxide Level 29 mmol/L (21-32) Anion Gap 7 (6-14) Blood Urea Nitrogen 12 mg/dL (8-26) Creatinine 1.3 mg/dL (0.7-1.3) Estimated GFR (Cockcroft-Gault) 75.2 BUN/Creatinine Ratio 9 (6-20) Glucose Level 91 mg/dL (70-99) Calcium Level 9.6 mg/dL (8.5-10.1) Total Bilirubin 0.7 mg/dL (0.2-1.0) Aspartate Amino Transferase (AST) 22 U/L (15-37) Alanine Aminotransferase (ALT) 38 U/L (16-63) Alkaline Phosphatase 49 U/L (46-116) Total Protein 8.0 g/dL (6.4-8.2) Albumin 4.3 g/dL (3.4-5.0) Albumin/Globulin Ratio 1.2 (1.0-1.7) Lipase 98 U/L (73-393) Laboratory Tests 08/13/18 16:45 Laboratory Tests 08/13/18 16:45 EKG EKG [] Radiology/Procedures Radiology/Procedures [] PATIENT: KRIS GARCIA ACCOUNT: [id number] : 1980 LOCATION: ER AGE: 38 SEX: M EXAM STATUS: REG ER ORD. PHYSICIAN: PRECIOUS CASTRO APRN REASON: abd pain PROCEDURE: CT ABD PELV W/ IV CONTRST ONLY CT abdomen pelvis with contrast. HISTORY: Abdominal pain CT scan of the abdomen and pelvis was done using 75 mL Omnipaque 300 contrast. There is a calcified granuloma in the right lower lobe. The lung bases are clear. Liver is normal in appearance. There is no calcified gallstone. Spleen and adrenal glands are normal. Pancreas is unremarkable. There is no mass or hydronephrosis in the kidneys. There are tiny bilateral renal cysts. There is no adenopathy. Appendix is normal. There is mild diverticulosis of the colon, I do not see an acute diverticulitis. There is no adenopathy or ascites or bowel obstruction. There is mild sclerosis at the SI joint from arthritis. IMPRESSION: 1. No abdominal or pelvic mass or acute finding noted in the abdomen. 2. Normal appendix Electronically signed by: Ezra Huff MD (08/13/2018 5:39 PM) [facility] DICTATED and SIGNED BY: EZRA HUFF MD DATE: 08/13/18 1739 Course & Med Decision Making Course & Med Decision Making Pertinent Labs and Imaging studies reviewed. (See chart for details) Will gets labs, urine, CT, and give supportive care. Labs are unremarkable. Imaging is negative. Will d/c home to follow up with primary care. Could be stomach ulcer will trial on PPI and have follow up with primary care. Dragon Disclaimer Dragon Disclaimer This electronic medical record was generated, in whole or in part, using a voice recognition dictation system. Departure Departure Impression: Primary Impression: Abdominal pain Disposition: HOME, SELF-CARE Condition: STABLE Referrals: NO PCP (PCP) Patient Instructions: Abdominal Pain (Nonspecific) Additional Instructions: Thank you for visiting [facility]. We appreciate you trusting us with your care. If any additional problems come up don't hesitate to return to visit us. Please follow up with your primary care provider so they can plan additional care if needed and know about the problem that you had. If symptoms worsen come back to the Emergency Department. Any concerning symptoms that start such as chest pain, shortness of air, weakness or numbness on one side of the body, running high fevers or any other concerning symptoms return to the ER. Scripts Pantoprazole Sodium (PANTOPRAZOLE SODIUM ) 40 Mg Tablet.dr 40 MG PO DAILYAC for 28 Days, #28 TAB Prov: PRECIOUS CASTRO APRN 08/13/18 Problem Qualifiers Primary Impression: Abdominal pain Abdominal location: unspecified location Qualified Codes: R10.9 - Unspecified abdominal pain PRECIOUS CASTRO APRN Aug 13, 2018 16:33
[2018-08-13 16:53] LABS: BASO % 1 % (0-3); EOS # 0.1 x10^3/uL (0.0-0.7); EOS % 2 % (0-3); HEMATOCRIT 43.4 % (39.0-53.0); HEMOGLOBIN 14.9 g/dL (13.0-17.5); LYMPH % 56 % (24-48); MEAN CORPUSCULAR HEMOGLOBIN 31 pg (25-35); MEAN CORPUSCULAR HGB CONC 34 g/dL (31-37); MEAN CORPUSCULAR VOLUME 91 fL (79-100); MONO # 0.6 x10^3/uL (0.0-1.1); MONO % 11 % (0-9); NEUT # 1.6 x10^3uL (1.8-7.7); NEUT % 30 % (31-73); PLATELET COUNT 278 x10^3/uL (140-400); RED BLOOD COUNT 4.77 x10^6/uL (4.30-5.70); RED CELL DISTRIBUTION WIDTH 13.8 % (11.5-14.5); WHITE BLOOD COUNT 5.2 x10^3/uL (4.0-11.0)
[2018-08-13 17:06] VITALS: BP 176/93
[2018-08-13 17:10] LABS: CALCIUM 9.6 mg/dL (8.5-10.1); CREATININE 1.3 mg/dL (0.7-1.3); GFR 75.2; POTASSIUM 3.9 mmol/L (3.5-5.1)
[2018-08-13 17:15] LABS: ALBUMIN 4.3 g/dL (3.4-5.0); ALBUMIN/GLOBULIN RATIO 1.2 (1.0-1.7); TOTAL BILIRUBIN 0.7 mg/dL (0.2-1.0)
--- NOTE | 2018-08-13 17:42 | RAD ---
CT abdomen pelvis with contrast. HISTORY: Abdominal pain CT scan of the abdomen and pelvis was done using 75 mL Omnipaque 300 contrast. There is a calcified granuloma in the right lower lobe. The lung bases are clear. Liver is normal in appearance. There is no calcified gallstone. Spleen and adrenal glands are normal. Pancreas is unremarkable. There is no mass or hydronephrosis in the kidneys. There are tiny bilateral renal cysts. There is no adenopathy. Appendix is normal. There is mild diverticulosis of the colon, I do not see an acute diverticulitis. There is no adenopathy or ascites or bowel obstruction. There is mild sclerosis at the SI joint from arthritis. IMPRESSION: 1. No abdominal or pelvic mass or acute finding noted in the abdomen. 2. Normal appendix Electronically signed by: Ezra Davis MD (08/13/2018 5:39 PM) [employer]
[2018-08-13] MEDS ORDERED: PANT40TA77 PO (17:56)
== END 2018-08-13 18:00 | disposition home or self-care (01) ==
LOC: ER 15:16
DX: R10.31 Right lower quadrant pain (principal); I10 Essential (primary) hypertension
CPT/HCPCS: 36415; 74177; 80053; 81001; 83690; 85025; 96374; 96375; 99285; J2270; J2405; J7030; Q9967

== ENCOUNTER 2019-05-31 14:03 | Emergency (ER) | payer SELFPAY ==
[~2019-05-31] VITALS: Ht 182.9 cm; Wt 106.8 kg
[~2019-05-31 14:03] MED LIST changes: +PANT40TA77 PO
[2019-05-31 14:10] VITALS: BP 182/122
[2019-05-31] MEDS ORDERED: METH4TAB2 PO (14:23)
[2019-05-31] MEDS ORDERED: AMOX500C PO (14:23)
--- NOTE | 2019-05-31 14:24 | PHYS DOC ---
Past Medical History Past Medical History: No Pertinent History, Diverticulosis, Hypertension Past Surgical History: No Surgical History Smoking Status: Current Every Day Smoker Alcohol Use: Occasionally Drug Use: Marijuana General Adult EDM: Chief Complaint: SORE THROAT HPI: HPI: Patient is a 39 year old male who presents with sore swollen throat x 1 week. Denies fever, soa, cough, abdominal pain, headache, dizziness, nausea, vomiting, diarrhea, vision changes, numbness or tingling. Patient states he is still eating and drinking without complications. Patient is jhypertensive in the ED and he states he was never put on medications. He is asymptomatic. Review of Systems: Review of Systems: HENT: Denies nasal congestion. + sore throat. [] Heart Score: Risk Factors: Risk Factors: DM, Current or recent (<one month) smoker, HTN, HLP, family history of CAD, obesity. Risk Scores: Score 0 - 3: 2.5% MACE over next 6 weeks - Discharge Home Score 4 - 6: 20.3% MACE over next 6 weeks - Admit for Clinical Observation Score 7 - 10: 72.7% MACE over next 6 weeks - Early Invasive Strategies Allergies: Allergies: Allergies Coded Allergies Type Severity Reaction Last Updated Verified No Known Drug Allergies 04/16/15 No Physical Exam: PE: Constitutional: Well developed, well nourished, no acute distress, non-toxic appearance. [] HENT: Normocephalic, atraumatic, bilateral external ears normal, oropharynx moist, no oral exudates, nose normal. Bilateral tonsil 2+ with exudates.[] Eyes: PERRLA, EOMI, conjunctiva normal, no discharge. [] Neck: Normal range of motion, no tenderness, supple, no stridor. [] Cardiovascular:Heart rate regular rhythm, no murmur [] Lungs & Thorax: Bilateral breath sounds clear to auscultation [] Abdomen: Bowel sounds normal, soft, no tenderness, no masses, no pulsatile masses. [] Skin: Warm, dry, no erythema, no rash. [] Back: No tenderness, no CVA tenderness. [] Extremities: No tenderness, no cyanosis, no clubbing, ROM intact, no edema. [] Neurologic: Alert and oriented X 3, normal motor function, normal sensory function, no focal deficits noted. [] Psychologic: Affect normal, judgement normal, mood normal. [] EKG: EKG: [] Radiology/Procedures: Radiology/Procedures: [] Course & Med Decision Making: Course & Med Decision Making Pertinent Labs and Imaging studies reviewed. (See chart for details) Red tonsils 2+ with exudates. Uvula midline. No trismus. Lungs clear to auscult ation. [] Dragon Disclaimer: Dragon Disclaimer: This electronic medical record was generated, in whole or in part, using a voice recognition dictation system. Departure Departure Impression: Primary Impression: Strep throat Disposition: HOME, SELF-CARE Condition: STABLE Referrals: NO PCP (PCP) Patient Instructions: Diet - 1.5 Gram Low Sodium, [id number], Hypertension, [id number], Strep Throat Additional Instructions: Follow up with your primary care provider for recheck. Also follow up with your physician for blood pressure medications. Scripts Amoxicillin (AMOXICILLIN) 500 Mg Capsule 1 CAP PO BID, #20 CAP Prov: HARMONY OWENS CAMPAIGN ASSOCIATE 05/31/19 Methylprednisolone (MEDROL) 4 Mg Tab.ds.pk 1 PKG PO UD, #1 PKG Prov: HARMONY OWENS CAMPAIGN ASSOCIATE 05/31/19 HARMONY OWESN APRN May 31, 2019 14:24
== END 2019-05-31 14:46 | disposition home or self-care (01) ==
LOC: ER 14:03
DX: J02.0 Streptococcal pharyngitis (principal); B95.5 Unspecified streptococcus as the cause of diseases classified elsewhere; I10 Essential (primary) hypertension; F17.200 Nicotine dependence, unspecified, uncomplicated
CPT/HCPCS: 99283